=== PATIENT | female | born 1985 | race Caucasian/White ===

== ENCOUNTER 2018-08-08 21:57 | Emergency (ER) | payer MEDICAID ==
[2018-08-09] MEDS: HYDROCODONE/APAP (5/325) TAB PO (01:23)
[2018-08-09] MEDS: CIPROFLOXACIN HCL OTIC DROP 0.25 ML RIGHT EAR (02:01)
== END 2018-08-09 02:33 | disposition home or self-care (01) ==
LOC: FTE 21:57
DX: H60.61 Unspecified chronic otitis externa, right ear (principal)
CPT/HCPCS: 81025; 99283